=== PATIENT | female | born 1960 | race Caucasian/White ===

== ENCOUNTER → 2023-05-27 15:35 | Outpatient (REF) | payer BC, SELFPAY | LOC: HWRAD 15:35 | PROVIDERS: ATTENDING PHYSICIAN Internal Medicine Critical Care Medicine; FAMILY PHYSICIAN Nurse Practitioner Adult Health | DX: R91.8 Other nonspecific abnormal finding of lung field (principal) | CPT/HCPCS: 71250 ==

== ENCOUNTER → 2023-09-09 12:48 | Outpatient (REF) | payer BC, SELFPAY | LOC: HWWDC 12:48 | PROVIDERS: ATTENDING PHYSICIAN Nurse Practitioner Adult Health | DX: Z12.31 Encounter for screening mammogram for malignant neoplasm of breast (principal) | CPT/HCPCS: 77063; 77067 ==

== ENCOUNTER → 2023-09-21 15:12 | Outpatient (REF) | payer BC, SELFPAY | LOC: HWRAD 15:12 | PROVIDERS: ATTENDING PHYSICIAN Internal Medicine Critical Care Medicine; FAMILY PHYSICIAN Nurse Practitioner Adult Health | DX: R91.8 Other nonspecific abnormal finding of lung field (principal) | CPT/HCPCS: 71250 ==

== ENCOUNTER → 2023-11-25 06:28 | Day surgery (SDC) | payer BC, SELFPAY | LOC: GI 06:28 | PROVIDERS: ATTENDING PHYSICIAN Specialist; FAMILY PHYSICIAN Nurse Practitioner Adult Health | DX: Z12.11 Encounter for screening for malignant neoplasm of colon (principal); D12.0 Benign neoplasm of cecum; D12.3 Benign neoplasm of transverse colon; D12.4 Benign neoplasm of descending colon; Z86.010 Personal history of colon polyps | CPT/HCPCS: 45385; 45380; 88305 ==

== ENCOUNTER 2024-01-04 15:18 | Emergency (ER) | payer BC, SELFPAY ==
[2024-01-04 15:26] VITALS: BP 148/107
[2024-01-04 15:42] LABS: % Basophils 1.1 % (0-2); % Eosinophils 1.1 % (0-6); % Immature Granulocytes 0.6 % (0-0.5); % Lymphocytes 19.3 % (20.5-51.1); % Neutrophils 70.9 % (42.2-75.2); Absolute Basophils 0.2 10^3/uL (0-0.2); Absolute Eosinophils 0.2 10^3/uL (0-0.7); Absolute Immature Granulocytes 0.1 10^3/uL (0-0.05); Absolute Monocytes 1.1 10^3/uL (0.1-0.6); Absolute Neutrophils 11.1 10^3/uL (1.4-6.5); Hematocrit 44.7 % (37.0-47.0); Hemoglobin 14.9 g/dL (12.0-16.0); Mean Corp Hgb Conc. 33.3 g/dL (33.0-37.0); Mean Corpuscular Hgb 29.9 pg (27.0-31.0); Mean Corpuscular Volume 89.6 fL (81.0-99.0); Mean Platelet Volume 10.3 fL (7.4-10.4); Nucleated Red Blood Cells % 0 %; Platelet Count 383 10^3/uL (130-400); Red Blood Cell Count 4.99 10^6/uL (4.20-5.40); White Blood Cell Count 15.6 10^3/uL (4.8-10.8)
[2024-01-04 15:47] LABS: Urine Albumin Negative (Neg - Trace); Urine Bilirubin Negative (Negative); Urine Character Clear (Clear); Urine Color Yellow; Urine Glucose Negative (Negative); Urine Ketone Negative (Negative); Urine Leukocyte Negative (Negative); Urine Nitrite Negative (Negative); Urine Occult Blood Negative (Negative); Urine Urobilinogen Negative (Neg - 1+)
[2024-01-04 16:04] LABS: ALT (SGPT) 46 U/L (0-35); AST (SGOT) 32 U/L (14-36); Albumin 4.6 g/dl (3.5-5.0); Alkaline Phosphatase 41 U/L (38-126); Blood Urea Nitrogen 28 mg/dl (7-17); Calcium 9.8 mg/dl (8.4-10.2); Carbon Dioxide 27 mmol/L (22-30); Chloride 102 mmol/L (98-107); Glucose 106 mg/dl (70-99); Potassium 4.4 mmol/L (3.5-5.1); Sodium 142 mmol/L (135-145); Total Bilirubin 0.3 mg/dl (0.2-1.3); eGFR > 60.00
--- NOTE | 2024-01-04 18:25 | ED.GENMED ---
History of Present Illness
General
Chief Complaint: Abdominal Pain
Time Seen by Provider: 01/04/24 18:07
History of Present Illness
History of Present Illness:
63-year-old female presents to the emergency department for evaluation of left lower quadrant abdominal pain radiating toward the left back beginning yesterday and worsening today. Has had multiple bowel movements today that were reportedly normal
with no change to the pain. Denies any fevers, chills, sweats, nausea, or vomiting. No dysuria or hematuria. Had a colonoscopy within the past month that was grossly unremarkable with the exception of 1 polyp.
Past History
Past History
ED Past Medical History: Asthma (Emphysema), GERD and Other (Peptic ulcer disease); Negative HTN, Hypercholesterolemia or NIDDM
ED Past Surgical History: Cholecystectomy and Tonsilectomy
Social History
Tobacco: Smoker
Alcohol: None
Personal:
Living: with family
Review of Systems
Review of Systems
Allergies reviewed?: Yes
All Other Systems: ROS reviewed and negative except as documented in HPI and ROS
Phy Exam
Physical Exam
Physical Exam:
GEN: Well appearing, NAD, WDWN
HEENT: Oral mucosa moist, no scleral icterus
Cardiac: Regular rate and rhythm, no murmurs
Lung: No respiratory distress, no tachypnea
Abdomen: Soft, mildly tender to the left lower quadrant, no rigidity or peritoneal signs
MSK: No gross deformity or injuries
Skin: Good color, no pallor or jaundice, no rashes
Neuro: AO x3, moves all extremities freely
Psych: Calm, cooperative
Course
Orders/Labs/Results
Orders:
Orders
01/04/24 15:34
Complete Blood Count/With Diff Urgent
Comprehensive Metabolic Panel Urgent
Urinalysis Reflex To Culture Urgent
Date Specimen was Collected: 01/04/24
Time Specimen was Collected: 15:29
01/04/24 18:19
CT Abd/Pel (IV only)-DH only Urgent
Comment:
Reason For Exam: LLQ pain
01/04/24 20:39
Dicyclomine [Bentyl] 10 mg PO NOW STA
Ketorolac [Toradol] 15 mg IV NOW STA
01/04/24 21:15
Oxycodone [Roxicodone] 5 mg PO NOW STA
Abnormal Lab Results
01/04/24
15:34
WBC 15.6 H 10^3/uL
(4.8-10.8)
Abs Immat Gran (auto) 0.1 H 10^3/uL
(0-0.05)
Absolute Neuts (auto) 11.1 H 10^3/uL
(1.4-6.5)
Absolute Monos (auto) 1.1 H 10^3/uL
(0.1-0.6)
Immature Gran % 0.6 H %
(0-0.5)
Lymphocytes % 19.3 L %
(20.5-51.1)
BUN 28 H mg/dl
(7-17)
Glucose 106 H mg/dl
(70-99)
ALT 46 H U/L
(0-35)
01/04/24 15:34
01/04/24 15:34
Vital Signs
Initial and Last Documented VS:
Initial Vital Signs
Temp Pulse Resp BP Pulse Ox
98.6 F 88 18 148/107 98
01/04/24 15:26 01/04/24 15:26 01/04/24 15:26 01/04/24 15:26 01/04/24 15:26
Last Documented Vital Signs
Temp Pulse Resp BP Pulse Ox
98.6 F 88 16 148/107 98
01/04/24 15:26 01/04/24 15:26 01/04/24 20:00 01/04/24 15:26 01/04/24 15:26
MDM/Problems Addressed
MDM/Problems Addressed:
Labs do show mild leukocytosis however CT is negative for acute pathology. Urinalysis is bland, otherwise labs are normal. Unclear etiology to symptoms. Pain did not improve with measures in the emergency department. Will provide a short
duration of pain medication and recommend outpatient PCP follow-up if symptoms persist
*Critical Care Note
Total Time (30-74mins, 75-104mins- exclusive of procedures): Not Applicable
ED Attending Note
-
Portions of this chart may have been created with voice recognition software.� Occasional wrong word or��sound alike� substitutions may have occurred due to the inherent limitations of voice recognition software.
Discharge Plan
Departure
Patient Disposition: Home (Routine Discharge)
Date of Disposition: 01/04/24
Time of Disposition: 21:15
Patient with high blood pressure during this ER visit?: No
Discharge Problem:
Left lower quadrant abdominal pain
Instructions: Abdominal Pain
Prescriptions:
New
oxycodone-acetaminophen [Percocet] 5-325 mg tablet
1 tab PO Q6HPRN PRN (Reason: pain) Qty: 10 0RF
No Action
mometasone [Nasonex] 17 GM spray,non-aerosol
1 spray intranasal PRN PRN (Reason: congestion)
raloxifene 60 MG tablet
60 mg PO DAILY
montelukast 10 MG tablet
10 mg PO QPM
eszopiclone [Lunesta] 3 MG tablet
3 mg PO DAILY
fluticasone propion-salmeterol [Advair HFA] 1 PUFF HFA aerosol inhaler
2 puff inhalation R BID
aspirin 81 MG tablet,delayed release (DR/EC)
81 mg PO DAILY Qty: 0 0RF
atorvastatin 40 MG tablet
40 mg PO QPM Qty: 30 1RF
pantoprazole 40 MG tablet,delayed release (DR/EC)
40 mg PO DAILY Qty: 30 0RF
Rx Instructions:
Please take 30 minutes prior to breakfast in the morning.
sucralfate 1 GM/10 ML suspension
1 gm PO QID Qty: 2 0RF
Rx Instructions:
take 1 hour before meals and bedtime
Referrals:
Cristela Begum CRNP [Family Provider] -
Activity Restrictions/Additional Instructions:
Return if symptoms worsen
Interventions
Interventions:
*Risk Screen - Suicide Last Done: 01/04/24 15:26
*General Assessment Last Done: 01/04/24 15:26
*Neglect/Abuse Screening Last Done: 01/04/24 15:26
ED- Fall Risk Assessment Last Done: 01/04/24 21:30
*ED COVID-19 Vaccine History Last Done: 01/04/24 15:26
*Nursing Disposition Last Done: 01/04/24 21:30
GT-Ebqccs-Bnhqxezdsj Assessment Last Done: 01/04/24 18:14
Discharge Date and Time
Print Language: ETHIOPIAN
[2024-01-04] MEDS: BENTYL 10 MG PO (20:47)
[2024-01-04] MEDS: TORADOL 15 MG IV (20:47)
[2024-01-04] MEDS: ROXICODONE 5 MG PO (21:22)
== END 2024-01-04 21:30 | disposition home or self-care (01) ==
LOC: EMR 15:18
PROVIDERS: Emergency Medicine; EMERGENCY PHYSICIAN Emergency Medicine; FAMILY PHYSICIAN Nurse Practitioner Adult Health
DX: R10.32 Left lower quadrant pain (principal); J43.9 Emphysema, unspecified; F17.200 Nicotine dependence, unspecified, uncomplicated; K21.9 Gastro-esophageal reflux disease without esophagitis; Z90.49 Acquired absence of other specified parts of digestive tract; Z87.11 Personal history of peptic ulcer disease
CPT/HCPCS: 99284; 96372; 74177; 80053; 81003; 85025; Q9967

== ENCOUNTER → 2024-01-06 09:20 | Outpatient (REF) | payer BC, SELFPAY | LOC: RCS 09:20 | PROVIDERS: ATTENDING PHYSICIAN Nurse Practitioner Adult Health | DX: I10 Essential (primary) hypertension (principal); R00.2 Palpitations; H93.A3 Pulsatile tinnitus, bilateral | CPT/HCPCS: 93225; 93226 ==

== ENCOUNTER → 2024-02-17 19:03 | Outpatient (REF) | payer BC, SELFPAY | LOC: MRI 3T 19:03 | PROVIDERS: ATTENDING PHYSICIAN Nurse Practitioner Adult Health | DX: Z87.891 Personal history of nicotine dependence (principal); R00.2 Palpitations; H93.A3 Pulsatile tinnitus, bilateral; R51.9 Headache, unspecified; Z80.8 Family history of malignant neoplasm of other organs or systems | CPT/HCPCS: 70544; 70549; 70553; A9585 ==

== ENCOUNTER → 2024-03-22 10:23 | Outpatient (REF) | payer BC, SELFPAY | LOC: HWCARD 10:23 | PROVIDERS: ATTENDING PHYSICIAN Nurse Practitioner Adult Health | DX: Z01.818 Encounter for other preprocedural examination (principal) | CPT/HCPCS: 93005 ==

== ENCOUNTER 2024-07-19 06:23 | Day surgery (SDC) | payer BC, SELFPAY | END 2024-07-19 14:22 | disposition home or self-care (01) | LOC: GI 06:23 | PROVIDERS: ATTENDING PHYSICIAN Specialist | DX: R12 Heartburn (principal); R00.2 Palpitations; R09.89 Other specified symptoms and signs involving the circulatory and respiratory systems; K22.89 Other specified disease of esophagus; K44.9 Diaphragmatic hernia without obstruction or gangrene; K31.7 Polyp of stomach and duodenum; F45.8 Other somatoform disorders; K31.A0 Gastric intestinal metaplasia, unspecified | CPT/HCPCS: 43239; 88305 ==

== ENCOUNTER → 2024-10-10 12:56 | Outpatient (REF) | payer BC, SELFPAY | LOC: HWWDC 12:56 | PROVIDERS: ATTENDING PHYSICIAN Nurse Practitioner Family; FAMILY PHYSICIAN Nurse Practitioner Adult Health | DX: R91.8 Other nonspecific abnormal finding of lung field (principal); Z12.31 Encounter for screening mammogram for malignant neoplasm of breast | CPT/HCPCS: 71250; 77063; 77067 ==

== ENCOUNTER → 2024-11-20 13:17 | Outpatient (REF) | payer BC, SELFPAY | LOC: HWRAD 13:17 | PROVIDERS: ATTENDING PHYSICIAN Nurse Practitioner Adult Health | DX: Z78.0 Asymptomatic menopausal state (principal) | CPT/HCPCS: 77080 ==

== ENCOUNTER → 2025-03-20 07:29 | Outpatient (REF) | payer BC, SELFPAY | LOC: RAD 07:29 | PROVIDERS: ATTENDING PHYSICIAN Specialist; FAMILY PHYSICIAN Nurse Practitioner Adult Health | DX: K21.9 Gastro-esophageal reflux disease without esophagitis (principal) | CPT/HCPCS: 74246 ==